=== PATIENT | male | born 1940 | race Two or more races ===

== ENCOUNTER 2021-11-27 01:44 | Inpatient (IN) | payer OTHER, MEDICAID ==
[~2021-11-27] VITALS: Ht 170.2 cm; Wt 71.1 kg
[2021-11-27 02:43] LABS: Basophils # (auto) 0 10 ^3/uL (0-0.2); Basophils % (auto) 0.7 % (0.0-2.0); Eosinophils # (auto) 0.9 10 ^3/uL (0-0.8); Eosinophils % (auto) 11.8 % (0.0-7.0); Hematocrit 48.8 % (41.0-53.0); Lymphocytes # (auto) 1.3 10 ^3/uL (0.4-5.4); Lymphocytes % (auto) 17.9 % (10.0-50.0); Mean Corpuscular Hemoglobin 28.5 pg (28.0-32.0); Mean Corpuscular Hgb Conc. 32.9 g/dL (32.0-36.0); Mean Corpuscular Volume 86.7 fL (80.0-100.0); Monocytes # (auto) 0.4 10 ^3/uL (0-1.3); Monocytes % (auto) 5.5 % (0.0-12.0); Neutrophils # (auto) 4.7 10 ^3/uL (1.6-8.6); Neutrophils % (auto) 64.1 % (37.0-80.0); Nucleated Red Blood Cells % 0.2 %; Red Blood Cells 5.63 10^6/uL (4.5-5.90); Red Cell Distribution Width 14.5 % (11.8-14.3); White Blood Cell 7.3 10^3/uL (4.4-10.8)
[2021-11-27 02:57] LABS: Albumin 3.9 g/dL (3.4-5.0); BUN/Creatinine Ratio 10.9; Calcium 9.2 mg/dL (8.5-10.1); Potassium 4.1 mmol/L (3.5-5.1)
[2021-11-27 03:00] LABS: Bilirubin, Total 1.8 mg/dL (0.2-1.0)
[2021-11-27] MEDS ORDERED: SODIUM CHLORIDE 0.9% 500 ML IV ONE (03:45)
[2021-11-27] MEDS ORDERED: ONDANSETRON HCL 4 MG/2 ML VIAL IV ONE (03:45)
[2021-11-27 07:32] LABS: Urine Bacteria NONE SEEN /hpf (None Seen); Urine Blood Negative /uL (Negative); Urine Mucus FEW (None Seen); Urine Specific Gravity 1.012 (1.001-1.035); Urine WBC <1 /hpf (0 - 3)
[2021-11-27] MEDS ORDERED: metroNIDAZOLE 500MG/100ML 100 ML IV ONE (09:30)
[2021-11-27] MEDS ORDERED: MORPHINE SULFATE INJ 2 MG/ml SYRG IV PRN (09:30)
[2021-11-27] MEDS ORDERED: cefTRIAXone 1GM/50ML D5W 50 ML IV ONE (09:30)
[2021-11-27] MEDS ORDERED: ONDANSETRON HCL 4 MG/2 ML VIAL IV PRN (09:30)
[2021-11-27] MEDS: LACTATED RINGER'S 1,000 ML IV SCH (10:51)
[2021-11-27 11:10] LABS: INR 0.97 (0.9-1.15)
[2021-11-27] MEDS ORDERED: METOPROLOL TARTRATE 1MG/1ML-5ML VIAL IV ONE (11:30)
[2021-11-27 12:43] LABS: BUN/Creatinine Ratio 12.5; Calcium 8.6 mg/dL (8.5-10.1); Magnesium 2.6 mg/dL (1.6-2.6); Potassium 4.1 mmol/L (3.5-5.1)
[2021-11-27] MEDS ORDERED: HEPARIN SODIUM (PORCINE) 5000 UNITS/ML 1ML VIAL IV ONE (13:45)
[2021-11-27] MEDS: metroNIDAZOLE 500MG/100ML 100 ML IV SCH ×2 (13:53→22:25)
[2021-11-27] MEDS ORDERED: LORazepam 2MG/ML-1ML VIAL IV PRN (16:00)
[2021-11-27 17:28] VITALS: BP 123/73
[2021-11-27 17:44] VITALS: BP 123/73
[2021-11-27] MEDS ORDERED: NITROGLYCERIN 0.2MG/HR TOPICAL PATCH TD ONE (19:45)
[2021-11-27 20:00] VITALS: BP 131/72
[2021-11-27 21:47] VITALS: BP 131/72
[2021-11-27] MEDS: HEPARIN SODIUM (PORCINE) 5000 UNITS/ML 1ML VIAL SC SCH (22:26)
[2021-11-28] MEDS: LACTATED RINGER'S 1,000 ML IV SCH ×2 (03:00→12:10)
[2021-11-28 05:00] VITALS: BP 146/78
[2021-11-28 05:44] LABS: Albumin 2.9 g/dL (3.4-5.0); Bilirubin, Total 2.3 mg/dL (0.2-1.0); Calcium 8.4 mg/dL (8.5-10.1); Total Protein 5.8 g/dL (6.4-8.2)
[2021-11-28 05:47] LABS: Hematocrit 41.8 % (41.0-53.0); Hemoglobin 13.9 g/dL (13.5-17.5); Mean Corpuscular Hemoglobin 29.2 pg (28.0-32.0); Mean Corpuscular Hgb Conc. 33.2 g/dL (32.0-36.0); Mean Corpuscular Volume 88.1 fL (80.0-100.0); Red Blood Cells 4.75 10^6/uL (4.5-5.90); Red Cell Distribution Width 14.3 % (11.8-14.3); White Blood Cell 4.1 10^3/uL (4.4-10.8)
[2021-11-28] MEDS: metroNIDAZOLE 500MG/100ML 100 ML IV SCH ×3 (05:48→22:01)
[2021-11-28 05:50] LABS: Band Neutrophils % (manual) 0; Basophils % (manual) 0 (0.0-2.0); Blast Cells 0; Metamyelocytes % 0; Myelocytes % 0; Promyelocytes % 0; Reactive Lymphocytes 0
[2021-11-28 07:15] LABS: Lymphocytes % (manual) 21 (10.0-50.0)
[2021-11-28 07:16] LABS: Eosinophils % (manual) 20 (0-7); Monocytes % (manual) 1 (0-12)
[2021-11-28] MEDS: cefTRIAXone 1GM/50ML D5W 50 ML IV SCH (08:41)
[2021-11-28 09:02] VITALS: BP 166/78
[2021-11-28] MEDS: HEPARIN SODIUM (PORCINE) 5000 UNITS/ML 1ML VIAL SC SCH (09:42)
[2021-11-28] MEDS ORDERED: PANTOPRAZOLE 40 MG/10 ML VIAL INJ IV ONE (10:45)
[2021-11-28 12:26] VITALS: BP 159/71
[2021-11-28] MEDS ORDERED: LISINOPRIL 10 MG TAB PO ONE (16:15)
[2021-11-28 16:33] VITALS: BP 137/72
[2021-11-28 20:00] VITALS: BP 146/64
[2021-11-28 22:00] VITALS: BP 146/64
[2021-11-29] MEDS: LACTATED RINGER'S 1,000 ML IV SCH (01:30)
[2021-11-29 05:00] VITALS: BP 150/67
[2021-11-29 05:31] LABS: Hematocrit 45.7 % (41.0-53.0); Hemoglobin 15.5 g/dL (13.5-17.5); Mean Corpuscular Hemoglobin 29.1 pg (28.0-32.0); Mean Corpuscular Volume 85.7 fL (80.0-100.0); Red Blood Cells 5.33 10^6/uL (4.5-5.90); Red Cell Distribution Width 14.4 % (11.8-14.3); White Blood Cell 5.4 10^3/uL (4.4-10.8)
[2021-11-29 05:56] LABS: Band Neutrophils % (manual) 0; Basophils % (manual) 0 (0.0-2.0); Blast Cells 0; Metamyelocytes % 0; Myelocytes % 0; Potassium 3.8 mmol/L (3.5-5.1); Promyelocytes % 0; Reactive Lymphocytes 0
[2021-11-29] MEDS: metroNIDAZOLE 500MG/100ML 100 ML IV SCH (06:02)
[2021-11-29 06:09] LABS: BUN/Creatinine Ratio 8.9; Calcium 8.8 mg/dL (8.5-10.1)
[2021-11-29 08:00] VITALS: BP 136/75
[2021-11-29 08:05] LABS: Lymphocytes % (manual) 14 (10.0-50.0); Monocytes % (manual) 4 (0-12)
[2021-11-29 08:06] LABS: Eosinophils % (manual) 18 (0-7)
[2021-11-29 09:00] VITALS: BP 136/75
[2021-11-29] MEDS: cefTRIAXone 1GM/50ML D5W 50 ML IV SCH (09:50)
[2021-11-29] MEDS ORDERED: LISINOPRIL 10 MG TAB PO SCH (10:00)
[2021-11-29] MEDS ORDERED: PANTOPRAZOLE 40 MG/10 ML VIAL INJ IV SCH (10:00)
[2021-11-29] MEDS ORDERED: LEVO500T31 PO (10:07)
[2021-11-29] MEDS ORDERED: ASPI-498 OR (10:07)
[2021-11-29] MEDS ORDERED: PANT40TA2 PO (10:07)
[2021-11-29] MEDS ORDERED: METR500T PO (10:07)
[2021-11-29] MEDS ORDERED: LISI-716 PO (10:12)
[2021-11-29 11:29] VITALS: BP 136/75
== END 2021-11-29 13:10 | disposition home or self-care (01) | DRG 391 ==
LOC: ER 01:44 → OVERFLOW 09:27 → CENTRAL 17:20 → TELE-CENTR 22:15
PROVIDERS: ADMIT Registered Nurse; ATTEND Internal Medicine
DX: K52.9 Noninfective gastroenteritis and colitis, unspecified (principal); I21.A1 Myocardial infarction type 2; K56.7 Ileus, unspecified; I10 Essential (primary) hypertension; I49.5 Sick sinus syndrome; K29.70 Gastritis, unspecified, without bleeding; Z79.82 Long term (current) use of aspirin; Z79.899 Other long term (current) drug therapy
CPT/HCPCS: 36415; 71045; 71250; 74176; 80048; 80053; 81001; 83735; 84484; 85007; 85025; 85027; 85610; 93005; 93306; 96361; 96365; 96368; 96375; C9113; G0378; J0696; J2405; J3490

== ENCOUNTER 2023-07-23 17:13 | Emergency (ER) | payer OTHER, MEDICAID ==
[~2023-07-23] VITALS: Ht 170.2 cm; Wt 69.6 kg
[~2023-07-23 17:13] MED LIST: ASPI-498 OR; LEVO500T31 PO; LISI10TA34 PO; METR500T PO; PANT40TA2 PO
[2023-07-23 17:44] VITALS: BP 173/80; PULSE 57; RESP 18; O2SAT 97
== END 2023-07-23 20:23 | disposition left against medical advice (07) ==
LOC: ER 17:13
DX: R51.9 Headache, unspecified (principal); Z53.21 Procedure and treatment not carried out due to patient leaving prior to being seen by health care provider